=== PATIENT | male | born 2000 | race Two or more races ===

== ENCOUNTER 2022-02-12 14:55 | Inpatient (IN) | payer SELFPAY ==
[~2022-02-12] VITALS: Ht 165.1 cm; Wt 56.8 kg
[2022-02-12] MEDS ORDERED: IV NORMAL SALINE 1000ML BAG 1,000 ML IV ONE ×2 (17:45→20:00)
[2022-02-12] MEDS ORDERED: ONDANSETRON PF 4 MG/2 ML VIAL. IVP ONE (18:00)
[2022-02-12] MEDS ORDERED: FAMOTIDINE 20 MG/2 ML VIAL IVP ONE (18:00)
[2022-02-12 18:22] LABS: BASO % 0 % (0-3); EOS # 0.1 x10^3/uL (0.0-0.7); EOS % 0 % (0-3); HEMATOCRIT 42.1 % (39.0-53.0); HEMOGLOBIN 14.4 g/dL (13.0-17.5); LYMPH # 1.5 x10^3/uL (1.0-4.8); LYMPH % 11 % (24-48); MEAN CORPUSCULAR HEMOGLOBIN 30 pg (25-35); MEAN CORPUSCULAR HGB CONC 34 g/dL (31-37); MEAN CORPUSCULAR VOLUME 88 fL (79-100); MONO # 0.9 x10^3/uL (0.0-1.1); MONO % 6 % (0-9); NEUT # 11.5 x10^3/uL (1.8-7.7); NEUT % 82 % (31-73); PLATELET COUNT 243 x10^3/uL (140-400); RED BLOOD COUNT 4.82 x10^6/uL (4.30-5.70)
[2022-02-12 18:31] LABS: CALCIUM 9.4 mg/dL (8.5-10.1); CREATININE 0.8 mg/dL (0.7-1.3); POTASSIUM 3.9 mmol/L (3.5-5.1)
[2022-02-12 18:36] LABS: ALBUMIN 4.4 g/dL (3.4-5.0); ALBUMIN/GLOBULIN RATIO 1.1 (1.0-1.7); TOTAL BILIRUBIN 0.9 mg/dL (0.2-1.0); TOTAL PROTEIN 8.5 g/dL (6.4-8.2)
[2022-02-12] MEDS ORDERED: IOHEXOL 300 MG/ML 100ML VIAL. IV ONE (18:45)
--- NOTE | 2022-02-12 19:05 | PHYS DOC ---
Past Medical History Past Surgical History: No Surgical History General Adult EDM: Chief Complaint: HEMATEMESIS/VOMITING BLOOD HPI: HPI: Patient is a 21 year old [place]uran-speaking male with no significant medical history presented to the ED today complaining of hematemesis to episodes yesterday at 8 AM as well as today at 2 PM. Patient stated small amount of blood. Patient denies any fever, coughing or congestion. Reports 8 out of 10 intermittent epigastric abdominal pain as well as right lower quadrant pain. Denies anything specifically exacerbating or relieving the pain. Describes the pain as sharp. Denies any alcohol use. Denies any drug use. Family is interpreting for patient Review of Systems: Review of Systems: Constitutional: Denies fever or chills. [] Eyes: Denies change in visual acuity. [] HENT: Denies nasal congestion or sore throat. [] Respiratory: Denies cough or shortness of breath. [] Cardiovascular: Denies chest pain or edema. [] GI: Reports hematemesis with epigastric pain as well as right lower quadrant pain, bloody stools or diarrhea. [] : Denies dysuria. [] Musculoskeletal: Denies back pain or joint pain. [] Integument: Denies rash. [] Neurologic: Denies headache, focal weakness or sensory changes. [] [] Psychiatric: Denies depression or anxiety. [] Heart Score: C/O Chest Pain: N/A Risk Factors: Risk Factors: DM, Current or recent (<one month) smoker, HTN, HLP, family history of CAD, obesity. Risk Scores: Score 0 - 3: 2.5% MACE over next 6 weeks - Discharge Home Score 4 - 6: 20.3% MACE over next 6 weeks - Admit for Clinical Observation Score 7 - 10: 72.7% MACE over next 6 weeks - Early Invasive Strategies Current Medications: Current Medications Medications (Trade) Dose Ordered Sig/Sonja Start Time Stop Time Status Last Admin Dose Admin Famotidine (Pepcid Vial) 20 mg 1X ONCE 02/12/22 18:00 02/12/22 18:01 DC 02/12/22 18:32 20 MG Iohexol (Omnipaque 300 Mg/ml) 75 ml 1X ONCE 02/12/22 18:45 02/12/22 18:46 DC 02/12/22 18:58 75 ML Ondansetron HCl (Zofran) 4 mg 1X ONCE 02/12/22 18:00 02/12/22 18:01 DC 02/12/22 18:32 4 MG Sodium Chloride 1,000 ml @ 1,000 mls/hr 1X ONCE 02/12/22 17:45 02/12/22 18:44 DC 02/12/22 18:29 1,000 MLS/HR Allergies: Allergies: Allergies Coded Allergies Type Severity Reaction Last Updated Verified No Known Drug Allergies 02/12/22 No Physical Exam: PE: Constitutional: Well developed, well nourished, no acute distress, non-toxic ap pearance. [] HENT: Normocephalic, atraumatic, bilateral external ears normal, oropharynx moist, no oral exudates, nose normal. [] Eyes: PERRLA, EOMI, conjunctiva normal, no discharge. [] Neck: Normal range of motion, no tenderness, supple, no stridor. [] Cardiovascular:Heart rate regular rhythm, no murmur [] Lungs & Thorax: Bilateral breath sounds clear to auscultation [] Abdomen: Bowel sounds normal, soft, mild RLQ tenderness with positive psoas sign, patient is guarding in the epigastric and right lower quadrant, no rebound tenderness, no masses, no pulsatile masses. Negative Morales sign Skin: Warm, dry, no erythema, no rash. [] Back: No tenderness, no CVA tenderness. [] Extremities: No tenderness, no cyanosis, no clubbing, ROM intact, no edema. [] Neurologic: Alert and oriented X 3, normal motor function, normal sensory function, no focal deficits noted. [] Psychologic: Affect normal, judgement normal, mood normal. [] Current Patient Data: Labs: Laboratory Tests Test 02/12/22 18:10 White Blood Count 14.0 x10^3/uL (4.0-11.0) H Red Blood Count 4.82 x10^6/uL (4.30-5.70) Hemoglobin 14.4 g/dL (13.0-17.5) Hematocrit 42.1 % (39.0-53.0) Mean Corpuscular Volume 88 fL (79-100) Mean Corpuscular Hemoglobin 30 pg (25-35) Mean Corpuscular Hemoglobin Concent 34 g/dL (31-37) Red Cell Distribution Width 13.0 % (11.5-14.5) Platelet Count 243 x10^3/uL (140-400) Neutrophils (%) (Auto) 82 % (31-73) H Lymphocytes (%) (Auto) 11 % (24-48) L Monocytes (%) (Auto) 6 % (0-9) Eosinophils (%) (Auto) 0 % (0-3) Basophils (%) (Auto) 0 % (0-3) Neutrophils # (Auto) 11.5 x10^3/uL (1.8-7.7) H Lymphocytes # (Auto) 1.5 x10^3/uL (1.0-4.8) Monocytes # (Auto) 0.9 x10^3/uL (0.0-1.1) Eosinophils # (Auto) 0.1 x10^3/uL (0.0-0.7) Basophils # (Auto) 0.0 x10^3/uL (0.0-0.2) Sodium Level 138 mmol/L (136-145) Potassium Level 3.9 mmol/L (3.5-5.1) Chloride Level 101 mmol/L (98-107) Carbon Dioxide Level 29 mmol/L (21-32) Anion Gap 8 (6-14) Blood Urea Nitrogen 8 mg/dL (8-26) Creatinine 0.8 mg/dL (0.7-1.3) Estimated GFR (Cockcroft-Gault) 122.0 BUN/Creatinine Ratio 10 (6-20) Glucose Level 108 mg/dL (70-99) H Calcium Level 9.4 mg/dL (8.5-10.1) Total Bilirubin 0.9 mg/dL (0.2-1.0) Aspartate Amino Transferase (AST) 14 U/L (15-37) L Alanine Aminotransferase (ALT) 29 U/L (16-63) Alkaline Phosphatase 96 U/L (46-116) Total Protein 8.5 g/dL (6.4-8.2) H Albumin 4.4 g/dL (3.4-5.0) Albumin/Globulin Ratio 1.1 (1.0-1.7) Lipase 39 U/L (73-393) L Laboratory Tests 02/12/22 18:10 Laboratory Tests 02/12/22 18:10 Vital Signs: Vital Signs Date Time Temp Pulse Resp B/P (MAP) Pulse Ox O2 Delivery O2 Flow Rate FiO2 02/12/22 18:30 88 22 123/69 (87) 100 Room Air 02/12/22 16:40 99.5 99.5 EKG: EKG: [] Radiology/Procedures: Radiology/Procedures: []PROCEDURE: CT ABD PELV W/ IV CONTRST ONLY Exam Date: 02/12/2022 6:[address] ABDOMEN+PELVIS W Indication: Reason: hemataemesis / Spl. Instructions: OMNI 300 INJ. 75 MLS / History: . TECHNIQUE: CT examination of the abdomen and pelvis was performed following the administration of nonionic intravenous contrast. One or more of the following dose reduction techniques were utilized: *Automated exposure control (AEC) *Adjustment of mA and/or kV according to patient size *Use of iterative reconstruction technique *CT scan done according to ALARA, or ALARA/IMAGE GENTLY FINDINGS: The visualized lung bases are clear. The liver, gallbladder, spleen, pancreas, adrenal glands and kidneys are normal. Urinary bladder is normal in appearance. The appendix is fluid-filled and distended up to 8 mm with mural enhancement and periappendiceal fat stranding consistent with acute appendicitis. No abscess or free air is seen at this time. There is no bowel obstruction. No significant atherosclerotic calcifications are seen. No lymphadenopathy or ascites is seen. Osseous structures are intact. IMPRESSION: Acute appendicitis. No abscess or free air. Findings discussed with MYRNA MENESES APRN at 02/12/2022 7:29 PM. FOR INTERNAL CODING PURPOSES Critical result: RESULT CODE: (C) Electronically signed by: Lara Elam MD (02/12/2022 7:30 PM) [facility] DICTATED and SIGNED BY: LARA ELAM MD DATE: 02/12/221910 Course & Med Decision Making: Course & Med Decision Making Pertinent Labs and Imaging studies reviewed. (See chart for details) This a 21-year-old male patient presented to the ED today with complaints of hematemesis, one episode yesterday and 1 today, epigastric abdominal pain, and right lower quadrant abdominal pain Vitals on arrival to the ED temperature 99.6, respiration 16, heart rate 80s,, blood pressure 135/76, O2 sats 100% on room air [address] Razo, requested we keep patient n.p.o., Covid test, antibiotics-Zosyn ordered Patient was also given IV fluids and Tylenol. Spoke with Dr. Sanchez who accepted patient for admission Dragon Disclaimer: Dragon Disclaimer: This electronic medical record was generated, in whole or in part, using a voice recognition dictation system. Departure Departure Impression: Primary Impression: Acute appendicitis Qualified Codes: K35.80 - Unspecified acute appendicitis Additional Impressions: Hematemesis Qualified Codes: K92.0 - Hematemesis Fever Qualified Codes: R50.9 - Fever, unspecified Disposition: 09 ADMITTED INPATIENT Condition: STABLE Referrals: NO PCP (PCP) MYRNA MENESES APRN Feb 12, 2022 19:05
--- NOTE | 2022-02-12 19:33 | RAD ---
Exam Date: 02/12/2022 6:[address] ABDOMEN+PELVIS W Indication: Reason: hemataemesis / Spl. Instructions: OMNI 300 INJ. 75 MLS / History: . TECHNIQUE: CT examination of the abdomen and pelvis was performed following the administration of no nionic intravenous contrast. One or more of the following dose reduction techniques were utilized: *Automated exposure control (AEC) *Adjustment of mA and/or kV according to patient size *Use of iterative reconstruction technique *CT scan done according to ALARA, or ALARA/IMAGE GENTLY FINDINGS: The visualized lung bases are clear. The liver, gallbladder, spleen, pancreas, adrenal glands and kidneys are normal. Urinary bladder is normal in appearance. The appendix is fluid-filled and distended up to 8 mm with mural enhancement and periappendiceal fat stranding consistent with acute appendicitis. No abscess or free air is seen at this time. There is no bowel obstruction. No significant atherosclerotic calcifications are seen. No lymphadenopathy or ascites is seen. Osseous structures are intact. IMPRESSION: Acute appendicitis. No abscess or free air. Findings discussed with MYRNA MENESES APRN at 02/12/2022 7:29 PM. FOR INTERNAL CODING PURPOSES Critical result: RESULT CODE: (C) Electronically signed by: Tanner Elam MD (02/12/2022 7:30 PM) [facility]
[2022-02-12] MEDS ORDERED: ONDANSETRON PF 4 MG/2 ML VIAL. IVP PRN (20:00)
[2022-02-12] MEDS ORDERED: PIPERACILLIN/TAZOBACTAM 3.375 GM in IV NORMAL SALINE 50ML 50 ML IV ONE (20:00)
[2022-02-12] MEDS ORDERED: MORPHINE SULFATE 4 MG/ML INJ. IVP PRN (20:00)
[2022-02-12] MEDS ORDERED: ACETAMINOPHEN 325 MG TABLET. PO PRN (20:00)
[2022-02-12 21:20] VITALS: BP 120/66
--- NOTE | 2022-02-12 21:20 | NUR ---
The patient, PANCHO RIOS, 21 y/o, M admitted by PARAM CH MD,for Acute appendicitis.Patient was given written information regarding hospital policies, unit procedures and contact persons. Valuables were checked and documented, Patient denies needing any valuables locked up with security.
[2022-02-12 23:00] VITALS: BP 102/61
--- NOTE | 2022-02-12 23:23 | PDOC1 ---
History and Physical Date of Service: DOS: DATE: 02/12/22 TIME: 23:20 Chief Complaint: Chief Complain: Nausea vomiting History of Present Illness: HPI: Patient is a 21-year-old male presented to the emergency room today due to nausea vomiting and actually some hematemesis. Started yesterday morning has been having abdominal pain as well particularly right lower quadrant. Denies any systemic symptoms. Work-up in emergency room revealed acute appendicitis. Surgery consulted. Past Medical/Surgical History: PMH/PSH: Patient denies Allergies: Allergies: Coded Allergies: No Known Drug Allergies (Unverified , 02/12/22) Family History: Family History: No known Social History: Social History: Denies alcohol tobacco drug use Current Medications: Current Medications Current Medications Famotidine (Pepcid Vial) 20 mg 1X ONCE IVP Last administered on 02/12/22at 18:32; Start 02/12/22 at 18:00; Stop 02/12/22 at 18:01; Status DC Ondansetron HCl (Zofran) 4 mg 1X ONCE IVP Last administered on 02/12/22at 18:32; Start 02/12/22 at 18:00; Stop 02/12/22 at 18:01; Status DC Sodium Chloride 1,000 ml @ 1,000 mls/hr 1X ONCE IV Last administered on 02/12/22at 18:29; Start 02/12/22 at 17:45; Stop 02/12/22 at 18:44; Status DC Iohexol (Omnipaque 300 Mg/ml) 75 ml 1X ONCE IV Last administered on 02/12/22at 18:58; Start 02/12/22 at 18:45; Stop 02/12/22 at 18:46; Status DC Ondansetron HCl (Zofran) 4 mg PRN Q8HRS PRN IVP NAUSEA/VOMITING; Start 02/12/22 at 20:00; Stop 02/13/22 at 19:59 Morphine Sulfate (Morphine Sulfate) 4 mg PRN Q2HR PRN IVP PAIN; Start 02/12/22 at 20:00; Stop 02/13/22 at 19:59 Acetaminophen (Tylenol) 650 mg PRN Q4HRS PRN PO FEVER > 100.3'F; Start 02/12/22 at 20:00; Stop 02/13/22 at 19:59 Piperacillin Sod/ Tazobactam Sod 3.375 gm/Sodium Chloride 50 ml @ 100 mls/hr 1X ONCE IV Last administered on 02/12/22at 20:00; Start 02/12/22 at 20:00; Stop 02/12/22 at 20:29; Status DC Sodium Chloride 1,000 ml @ 100 mls/hr 1X ONCE IV Last administered on 02/12/22at 21:53; Start 02/12/22 at 20:00; Stop 02/13/22 at 05:59 ROS: Review of Systems Review of System Unless noted in HPI 14 point review of systems was negative Physical Exam: Vital Signs: Vital Signs Date Time Temp Pulse Resp B/P (MAP) Pulse Ox O2 Delivery O2 Flow Rate FiO2 02/12/22 21:09 108 134/82 (99) 100 Room Air 02/12/22 18:30 22 02/12/22 16:40 99.5 99.5 Physcial Exam: GEN: No apparent distress. Alert and oriented HEENT: Normal cephalic, atraumatic, external auditory canals are patent EYES: Extraocular muscles are intact, pupil are equally round and reactive to light and accommodation MUSCULOSKELETAL: Well developed , well nourished, good range of motion ENDOCRINE: No thyromegaly was palpated LYMPHATICS: No cervical chain or axillary nodes were noted HEMATOPOIETIC: No bruising NECK: Supple, no JVD, no thyromegaly was noted LUNGS: Clear to auscultation in all lung brown without rhonchi or wheezing HEART: RRR, S!, S2 present. Peripheral pulses intact, no obvious murmurs noted ABDOMEN: Diffuse tenderness EXTREMITIES: Without clubbing, cyanosis, or edema. Pedal pulses intact. Negative Homans sign NEUROLOGIC: Normal speech and tone. A&O x 3, moves all extremities, no obvious focal deficits PSYCHIATRIC: Normal affect, normal mood. Stable SKIN: No ulcerations or rashes, good skin turgor, no jaundice VASCULAR: Good capillary refill, neurovascular bundle appears to be intact Labs: Labs: Laboratory Tests Test 02/12/22 18:10 02/12/22 20:45 White Blood Count 14.0 x10^3/uL (4.0-11.0) Red Blood Count 4.82 x10^6/uL (4.30-5.70) Hemoglobin 14.4 g/dL (13.0-17.5) Hematocrit 42.1 % (39.0-53.0) Mean Corpuscular Volume 88 fL (79-100) Mean Corpuscular Hemoglobin 30 pg (25-35) Mean Corpuscular Hemoglobin Concent 34 g/dL (31-37) Red Cell Distribution Width 13.0 % (11.5-14.5) Platelet Count 243 x10^3/uL (140-400) Neutrophils (%) (Auto) 82 % (31-73) Lymphocytes (%) (Auto) 11 % (24-48) Monocytes (%) (Auto) 6 % (0-9) Eosinophils (%) (Auto) 0 % (0-3) Basophils (%) (Auto) 0 % (0-3) Neutrophils # (Auto) 11.5 x10^3/uL (1.8-7.7) Lymphocytes # (Auto) 1.5 x10^3/uL (1.0-4.8) Monocytes # (Auto) 0.9 x10^3/uL (0.0-1.1) Eosinophils # (Auto) 0.1 x10^3/uL (0.0-0.7) Basophils # (Auto) 0.0 x10^3/uL (0.0-0.2) Sodium Level 138 mmol/L (136-145) Potassium Level 3.9 mmol/L (3.5-5.1) Chloride Level 101 mmol/L (98-107) Carbon Dioxide Level 29 mmol/L (21-32) Anion Gap 8 (6-14) Blood Urea Nitrogen 8 mg/dL (8-26) Creatinine 0.8 mg/dL (0.7-1.3) Estimated GFR (Cockcroft-Gault) 122.0 BUN/Creatinine Ratio 10 (6-20) Glucose Level 108 mg/dL (70-99) Calcium Level 9.4 mg/dL (8.5-10.1) Total Bilirubin 0.9 mg/dL (0.2-1.0) Aspartate Amino Transf (AST/SGOT) 14 U/L (15-37) Alanine Aminotransferase (ALT/SGPT) 29 U/L (16-63) Alkaline Phosphatase 96 U/L (46-116) Total Protein 8.5 g/dL (6.4-8.2) Albumin 4.4 g/dL (3.4-5.0) Albumin/Globulin Ratio 1.1 (1.0-1.7) Lipase 39 U/L (73-393) SARS-CoV-2 Antigen (Rapid) Negative (NEGATIVE) Laboratory Tests Test 02/12/22 18:10 02/12/22 20:45 White Blood Count 14.0 x10^3/uL (4.0-11.0) Red Blood Count 4.82 x10^6/uL (4.30-5.70) Hemoglobin 14.4 g/dL (13.0-17.5) Hematocrit 42.1 % (39.0-53.0) Mean Corpuscular Volume 88 fL (79-100) Mean Corpuscular Hemoglobin 30 pg (25-35) Mean Corpuscular Hemoglobin Concent 34 g/dL (31-37) Red Cell Distribution Width 13.0 % (11.5-14.5) Platelet Count 243 x10^3/uL (140-400) Neutrophils (%) (Auto) 82 % (31-73) Lymphocytes (%) (Auto) 11 % (24-48) Monocytes (%) (Auto) 6 % (0-9) Eosinophils (%) (Auto) 0 % (0-3) Basophils (%) (Auto) 0 % (0-3) Neutrophils # (Auto) 11.5 x10^3/uL (1.8-7.7) Lymphocytes # (Auto) 1.5 x10^3/uL (1.0-4.8) Monocytes # (Auto) 0.9 x10^3/uL (0.0-1.1) Eosinophils # (Auto) 0.1 x10^3/uL (0.0-0.7) Basophils # (Auto) 0.0 x10^3/uL (0.0-0.2) Sodium Level 138 mmol/L (136-145) Potassium Level 3.9 mmol/L (3.5-5.1) Chloride Level 101 mmol/L (98-107) Carbon Dioxide Level 29 mmol/L (21-32) Anion Gap 8 (6-14) Blood Urea Nitrogen 8 mg/dL (8-26) Creatinine 0.8 mg/dL (0.7-1.3) Estimated GFR (Cockcroft-Gault) 122.0 BUN/Creatinine Ratio 10 (6-20) Glucose Level 108 mg/dL (70-99) Calcium Level 9.4 mg/dL (8.5-10.1) Total Bilirubin 0.9 mg/dL (0.2-1.0) Aspartate Amino Transf (AST/SGOT) 14 U/L (15-37) Alanine Aminotransferase (ALT/SGPT) 29 U/L (16-63) Alkaline Phosphatase 96 U/L (46-116) Total Protein 8.5 g/dL (6.4-8.2) Albumin 4.4 g/dL (3.4-5.0) Albumin/Globulin Ratio 1.1 (1.0-1.7) Lipase 39 U/L (73-393) SARS-CoV-2 Antigen (Rapid) Negative (NEGATIVE) Assessment/Plan Assessment/Plan Acute appendicitis Admit to [facility] Consult surgery possible appendectomy tomorrow. N.p.o. midnight As needed pain control Justifications for Admission Other Justification PARAM CH MD Feb 12, 2022 23:22
[2022-02-13] VITALS (10 sets, daily range): BP systolic 105–125; BP diastolic 57–71
--- NOTE | 2022-02-13 00:10 | NUR ---
Patient admission history/documentation completed with supervisor plastic sheets #[id number]. Patient denies any questions/concerns at this time. Patient denies any c/o of pain at this time.
[2022-02-13 06:04] LABS: BASO % 0 % (0-3); EOS # 0.4 x10^3/uL (0.0-0.7); EOS % 4 % (0-3); HEMATOCRIT 39.4 % (39.0-53.0); LYMPH # 1.8 x10^3/uL (1.0-4.8); LYMPH % 21 % (24-48); MEAN CORPUSCULAR HEMOGLOBIN 29 pg (25-35); MEAN CORPUSCULAR HGB CONC 33 g/dL (31-37); MEAN CORPUSCULAR VOLUME 89 fL (79-100); MONO # 0.8 x10^3/uL (0.0-1.1); MONO % 9 % (0-9); NEUT # 5.6 x10^3/uL (1.8-7.7); NEUT % 66 % (31-73); PLATELET COUNT 203 x10^3/uL (140-400); RED BLOOD COUNT 4.42 x10^6/uL (4.30-5.70); RED CELL DISTRIBUTION WIDTH 13.3 % (11.5-14.5); WHITE BLOOD COUNT 8.6 x10^3/uL (4.0-11.0)
[2022-02-13 06:09] LABS: ALBUMIN 3.4 g/dL (3.4-5.0); ALBUMIN/GLOBULIN RATIO 0.9 (1.0-1.7); CALCIUM 8.8 mg/dL (8.5-10.1); CREATININE 0.9 mg/dL (0.7-1.3); GFR 106.5; POTASSIUM 3.9 mmol/L (3.5-5.1)
--- NOTE | 2022-02-13 08:00 | NUR ---
in the shower.dr. kemp here
[2022-02-13] MEDS ORDERED: ROCURONIUM 50 MG/5 ML VIAL. ONE (08:03)
[2022-02-13] MEDS ORDERED: PROPOFOL 10 MG/ML (20ML) VIAL. IV ONE (08:03)
[2022-02-13] MEDS ORDERED: fentaNYL PF VIAL 100 MCG/2 ML VIAL ONE ×2 (08:04→08:32)
[2022-02-13] MEDS ORDERED: GLYCOPYRROLATE 1 MG/5 ML VIAL. ONE (08:09)
--- NOTE | 2022-02-13 08:30 | NUR ---
transferred to surgery
[2022-02-13] MEDS ORDERED: MIDAZOLAM HCL/PF 2 MG/2 ML VIAL. ONE (08:32)
--- NOTE | 2022-02-13 08:34 | PDOC2 ---
NILAREBEKAH Paul SERVER ENGINEER 02/13/22 0834: CONSULT Date of Consult Date of Consult DATE: 02/13/22 TIME: 08:30 Reason for Consult Reason for Consult: appendicitis Referring Physician Referring Physician: ER Identification/Chief Complaint Chief Complaint abdominal pain Source Source: Chart review, Patient History of Present Illness Reason for Visit: Bulgarian speaking, used brood hatchery manager phone for assistance. Admitted with RLQ pain that started saturday. Associated nausea and emesis. Denies fevers or chills. Denies constipation or diarrhea. No similar pain in past. Hurts with touch, movement Past Medical History Past Medical History no pertinent hx Past Surgical History Past Surgical History: No pertinent history Family History Family History: Other (noncontributory to current illness ) Social History No ALCOHOL: none Lives: Alone Current Problem List Problem List Problems Medical Problems: (1) Acute appendicitis Status: Acute (2) Fever Status: Acute (3) Hematemesis Status: Acute Current Medications Current Medications Current Medications Famotidine (Pepcid Vial) 20 mg 1X ONCE IVP Last administered on 02/12/22at 18:32; Start 02/12/22 at 18:00; Stop 02/12/22 at 18:01; Status DC Ondansetron HCl (Zofran) 4 mg 1X ONCE IVP Last administered on 02/12/22at 18:32; Start 02/12/22 at 18:00; Stop 02/12/22 at 18:01; Status DC Sodium Chloride 1,000 ml @ 1,000 mls/hr 1X ONCE IV Last administered on 02/12/22at 18:29; Start 02/12/22 at 17:45; Stop 02/12/22 at 18:44; Status DC Iohexol (Omnipaque 300 Mg/ml) 75 ml 1X ONCE IV Last administered on 02/12/22at 18:58; Start 02/12/22 at 18:45; Stop 02/12/22 at 18:46; Status DC Ondansetron HCl (Zofran) 4 mg PRN Q8HRS PRN IVP NAUSEA/VOMITING; Start 02/12/22 at 20:00; Stop 02/13/22 at 19:59 Morphine Sulfate (Morphine Sulfate) 4 mg PRN Q2HR PRN IVP PAIN; Start 02/12/22 at 20:00; Stop 02/13/22 at 19:59 Acetaminophen (Tylenol) 650 mg PRN Q4HRS PRN PO FEVER > 100.3'F; Start 02/12/22 at 20:00; Stop 02/13/22 at 19:59 Piperacillin Sod/ Tazobactam Sod 3.375 gm/Sodium Chloride 50 ml @ 100 mls/hr 1X ONCE IV Last administered on 02/12/22at 20:00; Start 02/12/22 at 20:00; Stop 02/12/22 at 20:29; Status DC Sodium Chloride 1,000 ml @ 100 mls/hr 1X ONCE IV Last administered on 02/12/22at 21:53; Start 02/12/22 at 20:00; Stop 02/13/22 at 05:59; Status DC Influenza Virus Vaccine Quadrival (Flulaval Quad [id number] Syringe) 0.5 ml ONCE ONCE VAX IM ; Start 02/13/22 at 09:00; Stop 02/13/22 at 09:01 Propofol (Diprivan) 200 mg STK-MED ONCE IV ; Start 02/13/22 at 08:03; Stop 02/13/22 at 08:03; Status DC Rocuronium [place] (Zemuron) 50 mg STK-MED ONCE .ROUTE ; Start 02/13/22 at 08:03; Stop 02/13/22 at 08:04; Status DC Fentanyl Citrate (Fentanyl 2ml Vial) 100 mcg STK-MED ONCE .ROUTE ; Start 02/13/22 at 08:04; Stop 02/13/22 at 08:04; Status DC Glycopyrrolate (Robinul) 1 mg STK-MED ONCE .ROUTE ; Start 02/13/22 at 08:09; Stop 02/13/22 at 08:09; Status DC Active Scripts Active Reported No Known Medications Prior To Admisstion (Info) Each 1 Each 1X Allergies Allergies: Coded Allergies: No Known Drug Allergies (Unverified , 02/12/22) ROS General: No: Chills, Other (fevers ) PSYCHOLOGICAL ROS: No: Anxiety, Depression Eyes: No Blurry vision, No Double vision HEENT: No: Heacaches, Sore Throat Hematological and Lymphatic: No: Bleeding Problems, Blood Clots Respiratory: No: Cough, SOB with excertion Cardiovascular: No Chest Pain, No Palpitations Gastrointestinal: Yes Other (see HPI) Genitourinary: No Dysuria, No Retention Musculoskeletal: No Joint Pain, No Muscle Pain Neurological: No Impaired Coord/balance, No Numbness/Tingling Skin: No Pruritus, No Rash Physical Exam General: Alert, Oriented X3, Cooperative HEENT: Atraumatic, PERRLA Lungs: Clear to auscultation, Normal air movement Heart: Regular rate, Normal S1, Normal S2 Abdomen: Soft, Other (moderate RLQ TTP, some guarding on exam ) Extremities: No clubbing, No cyanosis Skin: No rashes, No breakdown Neuro: Normal gait, Normal speech Psych/Mental Status: Mental status NL, Mood NL MUSCULOSKELETAL: No deformity, No swelling Vitals VITALS Vital Signs Date Time Temp Pulse Resp B/P (MAP) Pulse Ox O2 Delivery O2 Flow Rate FiO2 02/13/22 07:15 98.3 62 18 106/57 (73) 99 Room Air 98.3 Labs Labs Laboratory Tests Test 02/12/22 18:10 02/12/22 20:45 02/13/22 04:35 White Blood Count 14.0 x10^3/uL (4.0-11.0) 8.6 x10^3/uL (4.0-11.0) Red Blood Count 4.82 x10^6/uL (4.30-5.70) 4.42 x10^6/uL (4.30-5.70) Hemoglobin 14.4 g/dL (13.0-17.5) 13.0 g/dL (13.0-17.5) Hematocrit 42.1 % (39.0-53.0) 39.4 % (39.0-53.0) Mean Corpuscular Volume 88 fL (79-100) 89 fL (79-100) Mean Corpuscular Hemoglobin 30 pg (25-35) 29 pg (25-35) Mean Corpuscular Hemoglobin Concent 34 g/dL (31-37) 33 g/dL (31-37) Red Cell Distribution Width 13.0 % (11.5-14.5) 13.3 % (11.5-14.5) Platelet Count 243 x10^3/uL (140-400) 203 x10^3/uL (140-400) Neutrophils (%) (Auto) 82 % (31-73) 66 % (31-73) Lymphocytes (%) (Auto) 11 % (24-48) 21 % (24-48) Monocytes (%) (Auto) 6 % (0-9) 9 % (0-9) Eosinophils (%) (Auto) 0 % (0-3) 4 % (0-3) Basophils (%) (Auto) 0 % (0-3) 0 % (0-3) Neutrophils # (Auto) 11.5 x10^3/uL (1.8-7.7) 5.6 x10^3/uL (1.8-7.7) Lymphocytes # (Auto) 1.5 x10^3/uL (1.0-4.8) 1.8 x10^3/uL (1.0-4.8) Monocytes # (Auto) 0.9 x10^3/uL (0.0-1.1) 0.8 x10^3/uL (0.0-1.1) Eosinophils # (Auto) 0.1 x10^3/uL (0.0-0.7) 0.4 x10^3/uL (0.0-0.7) Basophils # (Auto) 0.0 x10^3/uL (0.0-0.2) 0.0 x10^3/uL (0.0-0.2) Sodium Level 138 mmol/L (136-145) 140 mmol/L (136-145) Potassium Level 3.9 mmol/L (3.5-5.1) 3.9 mmol/L (3.5-5.1) Chloride Level 101 mmol/L (98-107) 106 mmol/L (98-107) Carbon Dioxide Level 29 mmol/L (21-32) 28 mmol/L (21-32) Anion Gap 8 (6-14) 6 (6-14) Blood Urea Nitrogen 8 mg/dL (8-26) 8 mg/dL (8-26) Creatinine 0.8 mg/dL (0.7-1.3) 0.9 mg/dL (0.7-1.3) Estimated GFR (Cockcroft-Gault) 122.0 106.5 BUN/Creatinine Ratio 10 (6-20) 9 (6-20) Glucose Level 108 mg/dL (70-99) 91 mg/dL (70-99) Calcium Level 9.4 mg/dL (8.5-10.1) 8.8 mg/dL (8.5-10.1) Total Bilirubin 0.9 mg/dL (0.2-1.0) 1.0 mg/dL (0.2-1.0) Aspartate Amino Transf (AST/SGOT) 14 U/L (15-37) 9 U/L (15-37) Alanine Aminotransferase (ALT/SGPT) 29 U/L (16-63) 25 U/L (16-63) Alkaline Phosphatase 96 U/L (46-116) 74 U/L (46-116) Total Protein 8.5 g/dL (6.4-8.2) 7.0 g/dL (6.4-8.2) Albumin 4.4 g/dL (3.4-5.0) 3.4 g/dL (3.4-5.0) Albumin/Globulin Ratio 1.1 (1.0-1.7) 0.9 (1.0-1.7) Lipase 39 U/L (73-393) SARS-CoV-2 Antigen (Rapid) Negative (NEGATIVE) Laboratory Tests Test 02/12/22 18:10 02/12/22 20:45 02/13/22 04:35 White Blood Count 14.0 x10^3/uL (4.0-11.0) 8.6 x10^3/uL (4.0-11.0) Red Blood Count 4.82 x10^6/uL (4.30-5.70) 4.42 x10^6/uL (4.30-5.70) Hemoglobin 14.4 g/dL (13.0-17.5) 13.0 g/dL (13.0-17.5) Hematocrit 42.1 % (39.0-53.0) 39.4 % (39.0-53.0) Mean Corpuscular Volume 88 fL (79-100) 89 fL (79-100) Mean Corpuscular Hemoglobin 30 pg (25-35) 29 pg (25-35) Mean Corpuscular Hemoglobin Concent 34 g/dL (31-37) 33 g/dL (31-37) Red Cell Distribution Width 13.0 % (11.5-14.5) 13.3 % (11.5-14.5) Platelet Count 243 x10^3/uL (140-400) 203 x10^3/uL (140-400) Neutrophils (%) (Auto) 82 % (31-73) 66 % (31-73) Lymphocytes (%) (Auto) 11 % (24-48) 21 % (24-48) Monocytes (%) (Auto) 6 % (0-9) 9 % (0-9) Eosinophils (%) (Auto) 0 % (0-3) 4 % (0-3) Basophils (%) (Auto) 0 % (0-3) 0 % (0-3) Neutrophils # (Auto) 11.5 x10^3/uL (1.8-7.7) 5.6 x10^3/uL (1.8-7.7) Lymphocytes # (Auto) 1.5 x10^3/uL (1.0-4.8) 1.8 x10^3/uL (1.0-4.8) Monocytes # (Auto) 0.9 x10^3/uL (0.0-1.1) 0.8 x10^3/uL (0.0-1.1) Eosinophils # (Auto) 0.1 x10^3/uL (0.0-0.7) 0.4 x10^3/uL (0.0-0.7) Basophils # (Auto) 0.0 x10^3/uL (0.0-0.2) 0.0 x10^3/uL (0.0-0.2) Sodium Level 138 mmol/L (136-145) 140 mmol/L (136-145) Potassium Level 3.9 mmol/L (3.5-5.1) 3.9 mmol/L (3.5-5.1) Chloride Level 101 mmol/L (98-107) 106 mmol/L (98-107) Carbon Dioxide Level 29 mmol/L (21-32) 28 mmol/L (21-32) Anion Gap 8 (6-14) 6 (6-14) Blood Urea Nitrogen 8 mg/dL (8-26) 8 mg/dL (8-26) Creatinine 0.8 mg/dL (0.7-1.3) 0.9 mg/dL (0.7-1.3) Estimated GFR (Cockcroft-Gault) 122.0 106.5 BUN/Creatinine Ratio 10 (6-20) 9 (6-20) Glucose Level 108 mg/dL (70-99) 91 mg/dL (70-99) Calcium Level 9.4 mg/dL (8.5-10.1) 8.8 mg/dL (8.5-10.1) Total Bilirubin 0.9 mg/dL (0.2-1.0) 1.0 mg/dL (0.2-1.0) Aspartate Amino Transf (AST/SGOT) 14 U/L (15-37) 9 U/L (15-37) Alanine Aminotransferase (ALT/SGPT) 29 U/L (16-63) 25 U/L (16-63) Alkaline Phosphatase 96 U/L (46-116) 74 U/L (46-116) Total Protein 8.5 g/dL (6.4-8.2) 7.0 g/dL (6.4-8.2) Albumin 4.4 g/dL (3.4-5.0) 3.4 g/dL (3.4-5.0) Albumin/Globulin Ratio 1.1 (1.0-1.7) 0.9 (1.0-1.7) Lipase 39 U/L (73-393) SARS-CoV-2 Antigen (Rapid) Negative (NEGATIVE) Assessment/Plan Assessment/Plan acute appendicitis plan [facility] CHRIS TODD MD 02/13/22 1321: CONSULT Assessment/Plan Assessment/Plan The patient was seen and examined by myself; he is a 21-year-old male who reported with a 1 day history of abdominal pain. The pain is located in the lower abdomen. He denies any associated nausea vomiting, fever chills. The pain is described as sharp and severe with no radiation. He had no inciting events for the pain. The emergency room evaluation is consistent with acute appendicitis. PMH/PSH/ROS/SH as above; exam: alert, oriented, no distress, no neck masses, lungs clear, heart RR and R, abdomen thin, tender with palpation in RLQ, ext neg for edema, no skin rashes, no musculoskeletal deformity; labs and Xrays reviewed. A/P) Acute appendicitis, plan to OR for laparoscopy REBEKAH DOTSON APRN Feb 13, 2022 08:34 CHRIS TODD MD Feb 13, 2022 13:21
[2022-02-13] MEDS ORDERED: FLU VACC QUAD 21-22 (6MOS+) PF 0.5 ML SYRINGE. VAX IM ONE (09:00)
--- NOTE | 2022-02-13 09:33 | NUR ---
report given to ronan
--- NOTE | 2022-02-13 09:35 | NUR ---
report received from Roxann ELLIS, care assumed, will await for pt to return from surgery.
[2022-02-13] MEDS ORDERED: SUGAMMADEX SODIUM 200 MG/2 ML VIAL. IVP ONE (09:45)
--- NOTE | 2022-02-13 11:18 | NUR ---
SW following. Discussed with RN, pt from home with family, room air, NPO, rapid COVID-19 negative. Surgery following - pt having surgery today. Med Assist following for self pay status. SW will continue to follow.
[2022-02-13] MEDS ORDERED: DEXMEDETOMIDINE 200 MCG/2 ML VIAL. ONE (11:24)
[2022-02-13] MEDS ORDERED: BUPIVACAINE-EPI 0.5% 30 ML VIAL KIT. ONE (11:33)
--- NOTE | 2022-02-13 13:18 | PDOC4 ---
Operative Note Operative Note Preoperative Diagnosis: Acute Appendicitis Postoperative Diagnosis: Same Procedure: Laparoscopic appendectomy Surgeon: Dung Configuration Management Advisor: Matias GAY Anesthesia: Gen. EBL: 10 mL Specimen: Appendix to pathology Drains: None Complications: None Indication: The patient is a 21-year-old male who reported to the emergency department with abdominal pain. The evaluation is consistent with acute appendicitis. The patient was offered surgical treatment with a laparoscopic appendectomy. The risks of surgery were discussed which include bleeding, infection, visceral injury, pain, anesthetic risk, potential need for additional surgery or procedure. The patient understands and would like to proceed. Description: The patient was taken to the operating room and placed supine on the operating table. Gen. anesthesia was performed. The abdomen was prepped with ChloraPrep and draped in a standard surgical manner. A supraumbilical incision was made through which a veress needle was inserted and a pneumoperitoneum was created. A visualized 5 mm trocar was inserted and the laparoscope was introduced. In the left lower quadrant a 5 mm trocar was inserted. In the right lower quadrant a 12 mm trocar was inserted. The appendix was identified and appeared inflamed consistent with acute appendicitis. There was no clear ev idence of perforation or periappendiceal abscess. The mesoappendix was bluntly from the appendix. The mesoappendix was controlled using several clips and it was divided. The appendix was then amputated off the cecum using an Endo ROSIBEL 45 stapling device. The appendix was then placed in an endoscopic bag and extracted at the suprapubic incision site. The fascia there was closed with 0 Vicryl and infiltrated with half percent Marcaine with epinephrine. The RLQ was visualized and the staple line appeared well intact and hemostasis was good. No other abnormalities were identified grossly. The remaining ports were removed and the pneumoperitoneum was relieved. The skin at all incision sites was closed with 4-0 Monocryl. Steri-Strips and dressings were applied. The patient tolerated the procedure well and was sent to the recovery room in stable condition. At the end of the case all counts were correct. CHRIS TODD MD Feb 13, 2022 13:18
[2022-02-13] MEDS ORDERED: fentaNYL PF VIAL 100 MCG/2 ML VIAL IVP PRN (13:30)
[2022-02-13] MEDS ORDERED: PROCHLORPERAZINE 10 MG/2 ML VIAL. IVP PRN (13:30)
[2022-02-13] MEDS ORDERED: IV RINGERS,LACTATED 1000ML 1,000 ML IV SCH (13:30)
[2022-02-13] MEDS ORDERED: HYDROmorphone 2 MG/ML INJ. IVP PRN (13:30)
[2022-02-13] MEDS: fentaNYL PF VIAL 100 MCG/2 ML VIAL IVP PRN ×2 (13:50→13:56)
[2022-02-13] MEDS: MORPHINE SULFATE 2 MG/ML INJ. IVP PRN ×3 (13:51→17:19)
--- NOTE | 2022-02-13 14:15 | NUR ---
Report from Love EMPLOYMENT SECURITY OFFICER, she stated that chen insertion was unsuccessful and there was some sort of possible obstruction. Advised Love this nurse will bladder scan patient upon arrival.
--- NOTE | 2022-02-13 14:30 | NUR ---
Bladder scan completed upon arrival and scan showed >550ml of urine. Straight cath unsuccessful. Ambulated with patient to restroom where they urinated without issues. Will continue to monitor.
--- NOTE | 2022-02-13 16:55 | PDOC ---
[employer] PROGRESS NOTE Date of Service DOS: DATE: 02/13/22 TIME: 16:54 Chief Complaint Chief Complaint acute nausea and vomiting and abd pain Acute appendicitis History of Present Illness History of Present Illness gen surg to OR today As needed pain control abx dc soon Vitals/I&O Vitals/I&O: Vital Signs Date Time Temp Pulse Resp B/P (MAP) Pulse Ox O2 Delivery O2 Flow Rate FiO2 02/13/22 15:40 98.0 69 20 121/65 (83) 96 Room Air 98.0 02/13/22 14:00 6.0 I & O 02/12/22 02/12/22 02/13/22 15:00 23:00 07:00 Intake Total 0 ml Balance 0 ml Physical Exam General: Alert, Oriented X3, Cooperative Heart: Regular rate, Normal S1, Normal S2 Abdomen: Soft, Other (moderate RLQ TTP, some guarding on exam ) Extremities: No clubbing, No cyanosis Skin: No rashes, No breakdown Labs Labs: Laboratory Tests Test 02/12/22 18:10 02/12/22 20:45 02/13/22 04:35 White Blood Count 14.0 x10^3/uL (4.0-11.0) 8.6 x10^3/uL (4.0-11.0) Red Blood Count 4.82 x10^6/uL (4.30-5.70) 4.42 x10^6/uL (4.30-5.70) Hemoglobin 14.4 g/dL (13.0-17.5) 13.0 g/dL (13.0-17.5) Hematocrit 42.1 % (39.0-53.0) 39.4 % (39.0-53.0) Mean Corpuscular Volume 88 fL (79-100) 89 fL (79-100) Mean Corpuscular Hemoglobin 30 pg (25-35) 29 pg (25-35) Mean Corpuscular Hemoglobin Concent 34 g/dL (31-37) 33 g/dL (31-37) Red Cell Distribution Width 13.0 % (11.5-14.5) 13.3 % (11.5-14.5) Platelet Count 243 x10^3/uL (140-400) 203 x10^3/uL (140-400) Neutrophils (%) (Auto) 82 % (31-73) 66 % (31-73) Lymphocytes (%) (Auto) 11 % (24-48) 21 % (24-48) Monocytes (%) (Auto) 6 % (0-9) 9 % (0-9) Eosinophils (%) (Auto) 0 % (0-3) 4 % (0-3) Basophils (%) (Auto) 0 % (0-3) 0 % (0-3) Neutrophils # (Auto) 11.5 x10^3/uL (1.8-7.7) 5.6 x10^3/uL (1.8-7.7) Lymphocytes # (Auto) 1.5 x10^3/uL (1.0-4.8) 1.8 x10^3/uL (1.0-4.8) Monocytes # (Auto) 0.9 x10^3/uL (0.0-1.1) 0.8 x10^3/uL (0.0-1.1) Eosinophils # (Auto) 0.1 x10^3/uL (0.0-0.7) 0.4 x10^3/uL (0.0-0.7) Basophils # (Auto) 0.0 x10^3/uL (0.0-0.2) 0.0 x10^3/uL (0.0-0.2) Sodium Level 138 mmol/L (136-145) 140 mmol/L (136-145) Potassium Level 3.9 mmol/L (3.5-5.1) 3.9 mmol/L (3.5-5.1) Chloride Level 101 mmol/L (98-107) 106 mmol/L (98-107) Carbon Dioxide Level 29 mmol/L (21-32) 28 mmol/L (21-32) Anion Gap 8 (6-14) 6 (6-14) Blood Urea Nitrogen 8 mg/dL (8-26) 8 mg/dL (8-26) Creatinine 0.8 mg/dL (0.7-1.3) 0.9 mg/dL (0.7-1.3) Estimated GFR (Cockcroft-Gault) 122.0 106.5 BUN/Creatinine Ratio 10 (6-20) 9 (6-20) Glucose Level 108 mg/dL (70-99) 91 mg/dL (70-99) Calcium Level 9.4 mg/dL (8.5-10.1) 8.8 mg/dL (8.5-10.1) Total Bilirubin 0.9 mg/dL (0.2-1.0) 1.0 mg/dL (0.2-1.0) Aspartate Amino Transf (AST/SGOT) 14 U/L (15-37) 9 U/L (15-37) Alanine Aminotransferase (ALT/SGPT) 29 U/L (16-63) 25 U/L (16-63) Alkaline Phosphatase 96 U/L (46-116) 74 U/L (46-116) Total Protein 8.5 g/dL (6.4-8.2) 7.0 g/dL (6.4-8.2) Albumin 4.4 g/dL (3.4-5.0) 3.4 g/dL (3.4-5.0) Albumin/Globulin Ratio 1.1 (1.0-1.7) 0.9 (1.0-1.7) Lipase 39 U/L (73-393) Coronavirus (COVID-19)(PCR) Not detected (NOT DETECTD) SARS-CoV-2 Antigen (Rapid) Negative (NEGATIVE) Assessment and Plan Assessmemt and Plan Problems Medical Problems: (1) Acute appendicitis Status: Acute (2) Fever Status: Acute (3) Hematemesis Status: Acute Comment Review of Relevant I have reviewed the following items carol (where applicable) has been applied. Medications: Current Medications Medications (Trade) Dose Ordered Sig/Sonja Route PRN Reason Start Time Stop Time Status Last Admin Dose Admin Famotidine (Pepcid Vial) 20 mg 1X ONCE IVP 02/12/22 18:00 02/12/22 18:01 DC 02/12/22 18:32 Ondansetron HCl (Zofran) 4 mg 1X ONCE IVP 02/12/22 18:00 02/12/22 18:01 DC 02/12/22 18:32 Sodium Chloride 1,000 ml @ 1,000 mls/hr 1X ONCE IV 02/12/22 17:45 02/12/22 18:44 DC 02/12/22 18:29 Iohexol (Omnipaque 300 Mg/ml) 75 ml 1X ONCE IV 02/12/22 18:45 02/12/22 18:46 DC 02/12/22 18:58 Piperacillin Sod/ Tazobactam Sod 3.375 gm/Sodium Chloride 50 ml @ 100 mls/hr 1X ONCE IV 02/12/22 20:00 02/12/22 20:29 DC 02/12/22 20:00 Sodium Chloride 1,000 ml @ 100 mls/hr 1X ONCE IV 02/12/22 20:00 02/13/22 05:59 DC 02/12/22 21:53 Bupivacaine HCl/ Epinephrine Bitart (Sensorcain-Epi 0.5% Kit) 30 ml STK-MED ONCE .ROUTE 02/13/22 11:33 02/13/22 11:33 DC 02/13/22 12:41 Fentanyl Citrate (Fentanyl 2ml Vial) 50 mcg PRN Q5MIN PRN IVP MODERATE PAIN 4-6 02/13/22 13:30 02/13/22 22:00 02/13/22 13:56 Morphine Sulfate (Morphine Sulfate) 1 mg PRN Q10MIN PRN IVP SEVERE PAIN 7-10 02/13/22 13:30 02/13/22 20:00 02/13/22 14:00 Justifications for Admission Other Justification DARIEL ZAMORANO MD Feb 13, 2022 16:55
[2022-02-13] MEDS ORDERED: MORPHINE SULFATE 2 MG/ML INJ. IVP PRN (17:30)
[2022-02-13] MEDS ORDERED: KETOROLAC 30 MG/ML VIAL. IVP ONE (17:30)
[2022-02-13] MEDS: TAMSULOSIN 0.4 MG CAP.ER.24H. PO SCH (20:48)
[2022-02-13] MEDS: oxyCODONE/APAP 5/325 1 TAB TABLET PO PRN (20:49)
[2022-02-14] VITALS (7 sets, daily range): BP systolic 56–125; BP diastolic 50–65
--- NOTE | 2022-02-14 09:09 | PDOC ---
SURGICAL PROGRESS NOTE DATE: 02/14/22 TIME: 09:08 Subjective feels better no emesis Vital Signs Vital Signs Date Time Temp Pulse Resp B/P (MAP) Pulse Ox O2 Delivery O2 Flow Rate FiO2 02/14/22 07:20 98.4 77 20 104/54 (71) 98 Room Air 98.4 02/13/22 19:00 I&O Intake and Output 02/14/22 07:00 Intake Total 2240 ml Output Total 1685 ml Balance 555 ml Intake Oral 340 ml IV Total 1900 ml Output Urine Total 1675 ml Estimated Blood Loss 10 ml # Voids 1 General: Alert, Oriented X3, Cooperative Abdomen: Soft, Other (lap dressings intact, incisional ttp ) Labs Laboratory Tests Test 02/12/22 18:10 02/12/22 20:45 02/13/22 04:35 White Blood Count 14.0 x10^3/uL (4.0-11.0) 8.6 x10^3/uL (4.0-11.0) Red Blood Count 4.82 x10^6/uL (4.30-5.70) 4.42 x10^6/uL (4.30-5.70) Hemoglobin 14.4 g/dL (13.0-17.5) 13.0 g/dL (13.0-17.5) Hematocrit 42.1 % (39.0-53.0) 39.4 % (39.0-53.0) Mean Corpuscular Volume 88 fL (79-100) 89 fL (79-100) Mean Corpuscular Hemoglobin 30 pg (25-35) 29 pg (25-35) Mean Corpuscular Hemoglobin Concent 34 g/dL (31-37) 33 g/dL (31-37) Red Cell Distribution Width 13.0 % (11.5-14.5) 13.3 % (11.5-14.5) Platelet Count 243 x10^3/uL (140-400) 203 x10^3/uL (140-400) Neutrophils (%) (Auto) 82 % (31-73) 66 % (31-73) Lymphocytes (%) (Auto) 11 % (24-48) 21 % (24-48) Monocytes (%) (Auto) 6 % (0-9) 9 % (0-9) Eosinophils (%) (Auto) 0 % (0-3) 4 % (0-3) Basophils (%) (Auto) 0 % (0-3) 0 % (0-3) Neutrophils # (Auto) 11.5 x10^3/uL (1.8-7.7) 5.6 x10^3/uL (1.8-7.7) Lymphocytes # (Auto) 1.5 x10^3/uL (1.0-4.8) 1.8 x10^3/uL (1.0-4.8) Monocytes # (Auto) 0.9 x10^3/uL (0.0-1.1) 0.8 x10^3/uL (0.0-1.1) Eosinophils # (Auto) 0.1 x10^3/uL (0.0-0.7) 0.4 x10^3/uL (0.0-0.7) Basophils # (Auto) 0.0 x10^3/uL (0.0-0.2) 0.0 x10^3/uL (0.0-0.2) Sodium Level 138 mmol/L (136-145) 140 mmol/L (136-145) Potassium Level 3.9 mmol/L (3.5-5.1) 3.9 mmol/L (3.5-5.1) Chloride Level 101 mmol/L (98-107) 106 mmol/L (98-107) Carbon Dioxide Level 29 mmol/L (21-32) 28 mmol/L (21-32) Anion Gap 8 (6-14) 6 (6-14) Blood Urea Nitrogen 8 mg/dL (8-26) 8 mg/dL (8-26) Creatinine 0.8 mg/dL (0.7-1.3) 0.9 mg/dL (0.7-1.3) Estimated GFR (Cockcroft-Gault) 122.0 106.5 BUN/Creatinine Ratio 10 (6-20) 9 (6-20) Glucose Level 108 mg/dL (70-99) 91 mg/dL (70-99) Calcium Level 9.4 mg/dL (8.5-10.1) 8.8 mg/dL (8.5-10.1) Total Bilirubin 0.9 mg/dL (0.2-1.0) 1.0 mg/dL (0.2-1.0) Aspartate Amino Transf (AST/SGOT) 14 U/L (15-37) 9 U/L (15-37) Alanine Aminotransferase (ALT/SGPT) 29 U/L (16-63) 25 U/L (16-63) Alkaline Phosphatase 96 U/L (46-116) 74 U/L (46-116) Total Protein 8.5 g/dL (6.4-8.2) 7.0 g/dL (6.4-8.2) Albumin 4.4 g/dL (3.4-5.0) 3.4 g/dL (3.4-5.0) Albumin/Globulin Ratio 1.1 (1.0-1.7) 0.9 (1.0-1.7) Lipase 39 U/L (73-393) Coronavirus (COVID-19)(PCR) Not detected (NOT DETECTD) SARS-CoV-2 Antigen (Rapid) Negative (NEGATIVE) Problem List Problems Medical Problems: (1) Acute appendicitis Status: Acute (2) Fever Status: Acute (3) Hematemesis Status: Acute Assessment/Plan s/p appy stable surgical, can dc home FU 2 weeks Justicifation of Admission Dx: Justifications for Admission: Justification of Admission Dx: Yes Comments: REBEKAH Pena APRN Feb 14, 2022 09:09
[2022-02-14] MEDS: oxyCODONE/APAP 5/325 1 TAB TABLET PO PRN (09:24)
--- NOTE | 2022-02-14 13:09 | PDOC ---
[facility] PROGRESS NOTE Date of Service DOS: DATE: 02/14/22 TIME: 13:08 Chief Complaint Chief Complaint acute nausea and vomiting and abd pain Acute appendicitis History of Present Illness History of Present Illness OR yesterday still having 5/10 [pain , gen surg following scant PO intake advance diet as able cont IV and PO pain control I Vabx Vitals/I&O Vitals/I&O: Vital Signs Date Time Temp Pulse Resp B/P (MAP) Pulse Ox O2 Delivery O2 Flow Rate FiO2 02/14/22 10:57 98.6 62 18 105/54 (71) 98 Room Air 98.6 02/13/22 19:00 I & O 02/13/22 02/13/22 02/14/22 15:00 23:00 07:00 Intake Total 1900 ml 340 ml Output Total 10 ml 1675 ml Balance 1890 ml 340 ml -1675 ml Physical Exam General: Alert, Oriented X3, Cooperative Heart: Regular rate, Normal S1, Normal S2 Abdomen: Soft, Other (lap dressings intact, incisional ttp ) Extremities: No clubbing, No cyanosis Skin: No rashes, No breakdown Assessment and Plan Assessmemt and Plan Problems Medical Problems: (1) Acute appendicitis Status: Acute (2) Fever Status: Acute (3) Hematemesis Status: Acute Comment Review of Relevant I have reviewed the following items carol (where applicable) has been applied. Medications: Current Medications Medications (Trade) Dose Ordered Sig/Sonja Route PRN Reason Start Time Stop Time Status Last Admin Dose Admin Fentanyl Citrate (Fentanyl 2ml Vial) 50 mcg PRN Q5MIN PRN IVP MODERATE PAIN 4-6 02/13/22 13:30 02/13/22 22:00 DC 02/13/22 13:56 Morphine Sulfate (Morphine Sulfate) 1 mg PRN Q10MIN PRN IVP SEVERE PAIN 7-10 02/13/22 13:30 02/13/22 17:21 DC 02/13/22 17:19 Oxycodone/ Acetaminophen (Percocet 5/325) 1 tab PRN Q4HRS PRN PO MODERATE TO SEVERE PAIN 02/13/22 13:30 02/14/22 09:24 Tamsulosin HCl (Flomax) 0.4 mg QHS PO 02/13/22 21:00 02/13/22 20:48 Justifications for Admission Other Justification DARIEL ZAMORANO MD Feb 14, 2022 13:09
[2022-02-14] MEDS ORDERED: KETOROLAC 30 MG/ML VIAL. IVP ONE (14:00)
[2022-02-14] MEDS ORDERED: oxyCODONE/APAP 7.5/325 1 TAB TABLET PO ONE (14:00)
--- NOTE | 2022-02-14 14:24 | PATHOLOGY ---
[facility] Accession Number: [id number] . 01 Material submitted: . appendix - APPENDIX . 01 Clinical history: . ACUTE APPENDICITIS LAP APPY . 02 Diagnosis: Appendix, laparoscopic appendectomy: - Acute appendicitis. . ([facility]:mm; 02/14/2022) [facility] 02/14/2022 1149 Local . 02 Comment: There is no evidence of rupture. . ([facility]:mml; 02/14/2022) . 02 Electronically signed: . Magdaleno Sullivan MD, Pathologist NPI- [id number] . 01 Gross description: . Fixative: Formalin Labeled: Appendix Appendix length: 4.9 cm Appendix diameter: 0.8 cm Mesoappendix: Up to 2.0 cm Proximal margin: Stapled Serosa: Pale hurt-pink to light yellow Cut surface: Pinpoint to dilated lumen Luminal diameter: Up to 0.3 cm Perforation: None identified Lesions/abnormalities: None identified A1 Proximal margin (inked black) and distal tip, bisected A2 Mid appendix ([facility]; 02/13/2022) [facility] 02/13/2022 1659 Local . 02 Pathologist provided ICD-10: K35.80 . 02 CPT . 148904 Specimen Comment: A courtesy copy of this report has been sent to [phone] Specimen Comment: [phone], Specimen Comment: Report sent to , DR CH / DR MENESES Performed at: 01 [facility] [address], [place], [place] [id number] MD Jose Persaud MD Phone: [phone] Performed at: 02 [facility] [address] [place], [place] [id number] MD Magdaleno Sullivan MD Phone: [phone]
[2022-02-14] MEDS: TAMSULOSIN 0.4 MG CAP.ER.24H. PO SCH (20:54)
[2022-02-15 02:26] VITALS: BP_SYST 119; BP_SYST 56; BP_DIAS 56; BP_DIAS 65
[2022-02-15 03:00] VITALS: BP 109/52
[2022-02-15 07:00] VITALS: BP 120/59
--- NOTE | 2022-02-15 09:01 | PDOC ---
SURGICAL PROGRESS NOTE DATE: 02/15/22 TIME: 09:00 Subjective on phone mild pain just starting breakfast Vital Signs Vital Signs Date Time Temp Pulse Resp B/P (MAP) Pulse Ox O2 Delivery O2 Flow Rate FiO2 02/15/22 07:00 97.9 60 18 120/59 (79) 98 Room Air 97.9 I&O Intake and Output 02/15/22 06:59 Intake Total 580 ml Output Total 500 ml Balance 80 ml Intake Oral 580 ml Output Urine Total 500 ml General: Alert, Oriented X3, Cooperative Abdomen: Soft, Other (incisional TTP ) Problem List Problems Medical Problems: (1) Acute appendicitis Status: Acute (2) Fever Status: Acute (3) Hematemesis Status: Acute Assessment/Plan s/p appy ok to dc from surgical pov Fu 2 weeks Justicifation of Admission Dx: Justifications for Admission: Justification of Admission Dx: Yes REBEKAH DOTSON APRN Feb 15, 2022 09:01
[2022-02-15] MEDS ORDERED: OXYC1TAB15 PO (09:02)
--- NOTE | 2022-02-15 09:17 | PDOC3 ---
Discharge Summary Visit Information Date of Admission: Feb 12, 2022 Date of Discharge: Feb 15, 2022 Final Diagnosis acute nausea and vomiting and abd pain Acute appendicitis Problems Medical Problems: (1) Acute appendicitis Status: Acute (2) Fever Status: Acute (3) Hematemesis Status: Acute Brief Hospital Course Allergies Allergies Coded Allergies Type Severity Reaction Last Updated Verified No Known Drug Allergies 02/12/22 No Vital Signs Vital Signs Date Time Temp Pulse Resp B/P (MAP) Pulse Ox O2 Delivery O2 Flow Rate FiO2 02/15/22 07:00 97.9 60 18 120/59 (79) 98 Room Air 97.9 Brief Hospital Course Mr. Khoury is a 21 old male, admit [facility] appy, taken to OR, lap surg, had nausea, andpoorpo intake, Discharge Information Condition at Discharge: Improved Follow Up: Weeks Disposition/Orders: D/C to Home Scheduled Info (No Known Medications Prior To Admisstion) Each, 1 EACH MC 1X for none, (Reported) Entered as Reported by: KIET TRIPLETT on 02/13/22220 Last Action: New Order on 02/13/22220 by KIET TRIPLETT Scheduled PRN Oxycodone/Apap 5-325 (Percocet 5-325 Mg Tablet ) 1 Each Tablet, 1 TAB PO PRN Q4HRS PRN for MODERATE TO SEVERE PAIN, #20 Ref 0 Prescribed by: Airam Espino on 02/15/22 0902 Patient Instructions Patient Instructions face to face x2 prob under 30 min Justicifation of Admission Dx: Justifications for Admission: Justification of Admission Dx: Yes DARIEL ZAMORANO MD Feb 15, 2022 09:17
--- NOTE | 2022-02-15 10:11 | NUR ---
SW following. Discussed with RN, discharge order for home with self care.
[2022-02-15 11:00] VITALS: BP 113/62
[2022-02-15 15:00] VITALS: BP 107/56
--- NOTE | 2022-02-15 16:47 | NUR ---
2255 patient discharged to home with family. taken out by wheelchair
== END 2022-02-15 16:20 | disposition home or self-care (01) | DRG 342 ==
LOC: ER 14:55 → 4 NORTH 19:56
PROVIDERS: ADMIT Student in an Organized Health Care Education/Training Program; ATTEND Student in an Organized Health Care Education/Training Program
PROC: 0DTJ4ZZ Resection of Appendix, Percutaneous Endoscopic Approach (ICD-10-PCS; principal; 2022-02-13 10:30)
DX: K35.80 Unspecified acute appendicitis (principal); K92.0 Hematemesis; Z20.822 Contact with and (suspected) exposure to COVID-19; Z79.899 Other long term (current) drug therapy
CPT/HCPCS: 36415; 74177; 80053; 83690; 85025; 87426; 88304; 96361; 96365; 96375; A4314; A4338; A4364; A4452; A4930; A6219; J2250; J2270; J2405; J2543; J2704; J3010; J3490; J7030; Q9967; U0003; 99285-25; G0378